=== PATIENT | male | born 1980 | race Caucasian/White ===

== ENCOUNTER 2020-06-17 12:45 | Emergency (ER) | payer BC, SELFPAY ==
[2020-06-17 12:53] VITALS: BP 133/90; PULSE 108; RESP 18; TEMP 36.1; O2SAT 97
--- NOTE | 2020-06-17 13:00 | DI.RAD_ITS ---
EXAM: XR FINGER RT RING CLINICAL HISTORY: fell off sled, distal finger pain TECHNIQUE: COMPARISON: No exams were available for comparison FINDINGS: Three views were obtained. There is no evidence of a fracture or dislocation. IMPRESSION: RADIATION DOSE DELIVERED: Total DLP
--- NOTE | 2020-06-17 13:03 | W.ED.GENAD ---
Discharge Plan Disposition Patient Disposition: HOME Condition: Stable Discharge Details Clinical Impression: Mallet finger Primary Care Provider: [facility] ED Provider: Ulises Gaam Home Meds and New Rx's Prescriptions: Continued fluticasone propionate 50 mcg/actuation Beatrice,Suspension 1 spray INTRANASAL DAILY RF: 0 Discharge Instructions Additional Instructions: your xray was negative, I suspect you have a tendon injury follow up with orthopedics, call their office on Friday for an appointment Referrals: Corey Campbell MD [ [facility]] - Medical Decision Making 40 yo male who denies chronic medical problems was sledding and he fell over the right and hit his right ring finger. No head trauma or loc. Has mild distal right ring finger pain and can not extend at the dip joint. Can fully move other finger joints and no wrist or other pain. Normal sensation and cap refill. Suspect mallet finger but will xray to evaluate for fx xray negative on my read, remains stable. If vrad agrees will d/c in splint and have him f/u with ortho Differential Diagnosis Differential Diagnosis: mallet finger, fracture Imaging Data Radiologic Study: Attestation: I personally reviewed and interpreted this imaging study as follows: Imaging: X-Ray Radiologist's impression: no acute findings HPI General Mode of arrival: ambulatory. Date/Time Provider Initiated Documentation: 06/17/20 12:55. Limitations to Documentation: no limitations. Information obtained by: patient. History of Present Illness 40 year old M presents to the emergency department with the chief complaint of right ring finger pain, described as moderate, Patient started experiencing this hour(s) (2) and it has been constant. No relieving factors improve symptom(s), No exacerbating factors reported . Patient notes no other symptoms.. Patient did receive the following treatments prior to arrival, none Related Data Home Medications Medication Instructions Recorded Confirmed fluticasone propionate 1 spray INTRANASAL DAILY 06/17/20 06/17/20 Allergies Allergy/AdvReac Type Severity Reaction Status Date / Time No Known Allergies Allergy Unverified 06/17/20 12:56 General Stated Complaint: Orthopedic LUCAS: 4 Review of Systems All systems reviewed & are unremarkable except as noted in HPI and below Constitutional Constitutional: Denies chills, Denies fever(s) and Denies weakness Cardiovascular Cardiovascular: Denies chest pain and Denies dyspnea Respiratory Respiratory: Denies cough and Denies dyspnea Gastrointestinal Gastrointestinal: Denies abdominal pain, Denies nausea and Denies vomiting Musculoskeletal Musculoskeletal: Denies joint swelling Neurologic Neurologic: Denies weakness [facility] Social History Smoking/Tobacco Use Status: Current every day Tobacco Type: cigarettes Smoking risk assessment performed?: Yes Alcohol Intake: current Alcohol Intake frequency: 0-2 drinks per day Alcohol type: beer Drug use: Never Substance use type: does not use Do you feel safe at home: Yes Do you feel safe in your relationship?: Yes Exam Const General: no acute distress Orientation: alert HENMT Head: normal to inspection Ears: external ears normal General nose exam: external nose normal Mouth: moist mucous membranes Eyes General: appearance normal, both eyes and all related structures Neck Neck: normal visual inspection Resp Effort & Inspection: normal respiratory effort and able to speak in complete sentences Cardio Rate: regular rate Skin General skin exam: no rashes or lesions noted Neuro General: patient alert and patient oriented x3 Extrem General: capillary refill normal Psych Mental Status: mental status grossly normal Course Vital Signs Vital signs: Vital Signs Temperature 36.1 C L 06/17/20 12:53 Pulse 108 H 06/17/20 12:53 Respiratory Rate 18 06/17/20 12:53 Blood Pressure 133/90 06/17/20 12:53 Pulse Oximetry 97 06/17/20 12:53 Temperature 36.1 C L 06/17/20 12:53 Temperature Source Temporal Artery Scan 06/17/20 12:53 Pulse 108 H 06/17/20 12:53 Respiratory Rate 18 06/17/20 12:53 Respiratory Effort Non-Labored 06/17/20 12:58 Blood Pressure 133/90 06/17/20 12:53 Blood Pressure Position Sitting 06/17/20 12:53 Pulse Oximetry 97 06/17/20 12:53 Oxygen Delivery Method Room Air 06/17/20 12:53 Oxygen Flow Rate 0 06/17/20 12:53 Pain Level 1 06/17/20 12:53
--- NOTE | 2020-06-17 13:45 | DI.VRAD_ITS ---
PROCEDURE INFORMATION: Exam: XR Right Finger(s) Exam date and time: 06/17/2020 1:18 PM Age: 40 years old Clinical indication: Pain; Finger(s); Patient HX: Blunt trauma to right ring finger TECHNIQUE: Imaging protocol: XR Right fingers. Views: Minimum 2 views. COMPARISON: No relevant prior studies available. FINDINGS: Bones/joints: Normal. Soft tissues: Normal. IMPRESSION: No acute findings. Dictated and Authenticated by: Amos Alejo MD. Ordering:MULU Montgomery MD
== END 2020-06-17 13:52 | disposition home or self-care (01) ==
PROVIDERS: Emergency Provider Emergency Medicine; PCP Neuromusculoskeletal Medicine & OMM
DX: M20.012 Mallet finger of left finger(s) (principal); V00.221A Fall from sled, initial encounter; Y93.23 Activity, snow (alpine) (downhill) skiing, snowboarding, sledding, tobogganing and snow tubing
CPT/HCPCS: 29125; 99283; 73140